=== PATIENT | female | born 1980 | race Caucasian/White ===

== ENCOUNTER 2018-05-27 14:32 | Emergency (ER) | payer OTHER ==
[2018-05-27] MEDS ORDERED: Metoprolol Tartrate 50 MG Tab PO ONE (15:22)
--- NOTE | 2018-05-27 15:32 | EDM.PDOC ---
<Deidra Castro - Last Filed: 05/27/18 15:24> ED HPI GENERAL MEDICAL PROBLEM - General Chief Complaint: Neurological Problem Stated Complaint: HIGH BP/ DIZZY Time Seen by Provider: 05/27/18 14:54 Source of Information: Reports: Patient, RN Notes Reviewed History Limitations: Reports: No Limitations - History of Present Illness INITIAL COMMENTS - FREE TEXT/NARRATIVE: Ling is a 38 year old female who presents to the ED today for irregular heart beat and an episode of dizziness, tingling, and hot flash. Patient states that about 1.5 hours ago she experienced the above symptoms, then sat down and took her blood pressure and it was "high" so she reported to the ED. She has a history of PVC's and has been seen and evaluated for this problem in the past. She does have a standing order for a Holter monitor, which she has yet to complete. Her PCP is Dr. Love. She states that a very similar situation occurred one month ago, and was seen at [facility] in [place], where she was medically cleared. She feels that her PVC's are brought on by fatigue, dehydration, stress and caffeine use. She also associates them with her use of phentermine, which she has discontinued for the last month. She also takes vitamins and a baby aspirin when she remembers. Her paternal grandfather had an TX at age 52 and her father has a history of PVC starting around age 30-40. She currently feels an uncomfortable feeling in her chest, like a pause. She states that it makes her want to cough. She denies any chest pain or shortness of breath. She has been drinking more water lately and states she has had 70+ ounces today, and therefore has increased urination. Treatments CRYSTAL REPORT DEVELOPER: Reports: Other (see below) Other Treatments CRYSTAL REPORT DEVELOPER: none - Related Data Allergies Allergy/AdvReac Type Severity Reaction Status Date / Time No Known Allergies Allergy Verified 08/23/16 12:43 CDT Home Meds: Home Meds L.acidoph,Paracasei, B.lactis [Probiotic] 1 cap PO DAILY 05/27/18 [History] Multivitamin [Multivitamins] 1 cap PO DAILY 05/27/18 [History] [place]-3 Fatty Acids [[place]-3] 100 mg PO DAILY 05/27/18 [History] Past Medical History - Past Surgical History HEENT Surgical History: Reports: Adenoidectomy, Tonsillectomy GI Surgical History: Reports: Cholecystectomy Social & Family History - Family History Family Medical History: Noncontributory - Tobacco Use Smoking Status *Q: Current Every Day Smoker Years of Tobacco use: 10 Packs/Tins Daily: 0.1 - Caffeine Use Caffeine Use: Reports: Coffee - Recreational Drug Use Recreational Drug Use: No ED ROS GENERAL - Review of Systems Review Of Systems: See Below Constitutional: Reports: No Symptoms HEENT: Reports: No Symptoms Respiratory: Reports: No Symptoms Cardiovascular: Reports: Blood Pressure Problem (high blood pressure after episode of dizziness and flushing), Lightheadedness, Palpitations GI/Abdominal: Reports: No Symptoms : Reports: No Symptoms Musculoskeletal: Reports: No Symptoms Skin: Reports: No Symptoms Neurological: Reports: Dizziness, Tingling (entire body, especially arms ) Psychiatric: Reports: Anxiety ED EXAM, GENERAL - Physical Exam Exam: See Below Exam Limited By: No Limitations General Appearance: Alert, WD/WN, No Apparent Distress Eye Exam: Bilateral Eye: EOMI, Normal Inspection Respiratory/Chest: No Respiratory Distress, Lungs Clear, Normal Breath Sounds, Chest Non-Tender Cardiovascular: No Edema (patient does wear compression stockings), Irregularly Irregular Peripheral Pulses: 4+: Radial (L) (irregular), Radial (R) (irregular ) GI/Abdominal: Soft, Non-Tender, No Mass Extremities: No Pedal Edema, Normal Capillary Refill Neurological: Alert, Oriented, CN II-XII Intact, Normal Cognition Skin Exam: Warm, Dry, Intact Course - Vital Signs Last Recorded V/S: Last Vital Signs Temp 98.5 F 05/27/18 14:51 Pulse 78 05/27/18 15:41 Resp 21 H 05/27/18 14:51 BP 144/84 H 05/27/18 15:41 Pulse Ox 100 05/27/18 14:51 - Orders/Labs/Meds Orders: Active Orders 24 hr Category Date Time Status EKG Documentation Completion [RC] ASDIRECTED Care 05/27/18 14:57 Active Holter Monitor 48 Hours [RC] .PRN Care 05/27/18 16:15 Active EKG 12 Lead [EK] Stat Ther 05/27/18 14:57 Ordered Labs: Laboratory Tests 05/27/18 05/27/18 Range/Units 15:00 15:00 WBC 6.58 (3.98-10.04) K/mm3 RBC 4.26 (3.98-5.22) M/mm3 Hgb 12.9 (11.2-15.7) gm/L Hct 39.1 (34.1-44.9) % MCV 91.8 (79.4-94.8) fl MCH 30.3 (25.6-32.2) pg MCHC 33.0 (32.2-35.5) g/dl RDW Std Deviation 40.9 (36.4-46.3) fL Plt Count 261 (182-369) K/mm3 MPV 10.0 (9.4-12.3) fl Neut % (Auto) 57.9 (34.0-71.1) % Lymph % (Auto) 32.5 (19.3-51.7) % [place] % (Auto) 7.3 (4.7-12.5) % Eos % (Auto) 1.8 (0.7-5.8) Baso % (Auto) 0.3 (0.1-1.2) % Neut # (Auto) 3.81 (1.56-6.13) K/mm3 Lymph # (Auto) 2.14 (1.18-3.74) K/mm3 [place] # (Auto) 0.48 H (0.24-0.36) K/mm3 Eos # (Auto) 0.12 (0.04-0.36) K/mm3 Baso # (Auto) 0.02 (0.01-0.08) K/mm3 Sodium 141 (136-145) mEq/L Potassium 3.6 (3.5-5.1) mEq/L Chloride 103 (98-107) mEq/L Carbon Dioxide 27 (21-32) mEq/L Anion Gap 14.6 (5-15) BUN 10 (7-18) mg/dL Creatinine 0.8 (0.55-1.02) mg/dL Est Cr Clr Drug Dosing 75.41 mL/min Estimated GFR (MDRD) > 60 (>60) mL/min BUN/Creatinine Ratio 12.5 L (14-18) Glucose 99 (74-106) mg/dL Calcium 9.8 (8.5-10.1) mg/dL Total Bilirubin 0.4 (0.2-1.0) mg/dL AST 23 (15-37) U/L ALT 40 (14-59) U/L Alkaline Phosphatase 52 (46-116) U/L Total Protein 7.9 (6.4-8.2) g/dl Albumin 4.3 (3.4-5.0) g/dl Globulin 3.6 gm/dL Albumin/Globulin Ratio 1.2 (1-2) Meds: Medications Discontinued Medications Generic Name Dose Route Start Last Admin Trade Name M[place]q PRN Reason Stop Dose Admin Metoprolol Tartrate 50 mg 05/27/18 15:22 05/27/18 15:41 Lopressor PO 05/27/18 15:23 25 mg ONETIME ONE Administration Departure - Departure Disposition: Home, Self-Care 01 Clinical Impression: Heart palpitations, Frequent PVCs Referrals: Yanely Love LPN [Primary Care Provider] - Forms: ED Department Discharge Additional Instructions: 48 hour holter moniter, cardiac echocardiogram, if not given a time now at time of discharge the Radiology dept will call you to set up a time for that. Caffeine is one of the know triggers for PVC's so try reduce caffeine intake for now. Follow up with Dr Love for holter moniter and echocardiagram results , further evaluation and treatment as needed. Return to ED as needed. - My Orders Last 24 Hours: My Active Orders 05/27/18 14:57 EKG Documentation Completion [RC] ASDIRECTED EKG 12 Lead [EK] Stat 05/27/18 16:15 Holter Monitor 48 Hours [RC] .PRN - Assessment/Plan Last 24 Hours: My Active Orders 05/27/18 14:57 EKG Documentation Completion [RC] ASDIRECTED EKG 12 Lead [EK] Stat 05/27/18 16:15 Holter Monitor 48 Hours [RC] .PRN <Marquez Livingston - Last Filed: 05/27/18 16:21> Departure - Departure Time of Disposition: 16:18 Condition: Good
[2018-05-27 16:42] VITALS: BP 125/81
== END 2018-05-27 16:40 | disposition home or self-care (01) ==
LOC: JD.ED 14:32
DX: R00.2 Palpitations (principal); I49.3 Ventricular premature depolarization; F17.210 Nicotine dependence, cigarettes, uncomplicated; Z79.899 Other long term (current) drug therapy
CPT/HCPCS: 36415; 80053; 85025; 93005; 93225; 93226; 99285; A9270; 93010; 99283

== ENCOUNTER 2020-05-01 16:11 | Emergency (ER) | payer OTHER ==
--- NOTE | 2020-05-01 17:15 | EDM.PDOC ---
ED HPI GENERAL MEDICAL PROBLEM - General Chief Complaint: Cardiovascular Problem Stated Complaint: DIZZY/RAPID HEART BEAT Time Seen by Provider: 05/01/20 16:47 Source of Information: Reports: Patient, RN Notes Reviewed History Limitations: Reports: No Limitations - History of Present Illness INITIAL COMMENTS - FREE TEXT/NARRATIVE: Patient is a 40-year-old female presenting to the emergency department with complaints of an episode of rapid heart rate and dizziness. She states she was driving to [place] when the symptoms occurred. She stopped in [place] which is on her way. She states that her heart rate was approximately 130 and she became dizzy and felt some tightness in her chest. Denies any significant chest pain associated with this. Symptoms lasted a few minutes and then resolved. At this time she is feeling well. Patient states she does have a history of episodes similar to this. She was recently taken off of beta-maged by her workers compensation specialist because she states it was "making her feel crummy ". She has had numerous tests such as Holter monitor, stress test, echocardiogram completed. She has been told that she has vasospasms which cause her chest pain. She denies any thyroid abnormalities. She states she has an appointment with her primary care provider in May and plans to request a referral to another workers compensation specialist for second opinion. States that she wanted to be evaluated to make sure she was not having a heart attack. She denies any chest pain or shortness of breath at this time. Onset of symptoms was approximately an hour and a half ago. - Related Data Allergies Allergy/AdvReac Type Severity Reaction Status Date / Time sulfamethoxazole Allergy Rash Verified 05/01/20 16:39 [From Bactrim] trimethoprim [From Bactrim] Allergy Rash Verified 05/01/20 16:39 Home Meds: Home Meds L.acidoph,Paracasei, B.lactis [Probiotic] 1 cap PO DAILY 05/27/18 [History] Multivitamin [Multivitamins] 1 cap PO DAILY 05/27/18 [History] [place]-3 Fatty Acids [[place]-3] 100 mg PO DAILY 05/27/18 [History] LORazepam [Ativan] 0.5 mg PO ASDIRECTED PRN 03/28/20 [History] Rosuvastatin [Crestor] 5 mg PO DAILY 03/28/20 [History] traZODone HCl [Trazodone HCl] 50 mg PO ASDIRECTED PRN 03/28/20 [History] Albuterol Sulfate [Proair Hfa] 8.5 gm IH Q8HR PRN #1 [id number] 04/25/20 [Rx] Amoxicillin 1,000 mg PO TID 7 Days #42 tablet 04/25/20 [Rx] Past Medical History Cardiovascular History: Reports: Other (See Below) Other Cardiovascular History: palpitations Psychiatric History: Reports: Anxiety - Infectious Disease History Infectious Disease History: Reports: Chicken Pox - Past Surgical History HEENT Surgical History: Reports: Adenoidectomy, Tonsillectomy GI Surgical History: Reports: Cholecystectomy Musculoskeletal Surgical History: Reports: Other (See Below) Other Musculoskeletal Surgeries/Procedures:: vein stripping surgery Social & Family History - Family History Family Medical History: No Pertinent Family History - Tobacco Use Tobacco Use Status *Q: Current Some Day Tobacco User Years of Tobacco use: 20 Packs/Tins Daily: 0.1 - Caffeine Use Caffeine Use: Reports: Coffee - Recreational Drug Use Recreational Drug Use: No ED ROS GENERAL - Review of Systems Review Of Systems: See Below Constitutional: Reports: No Symptoms HEENT: Reports: No Symptoms Respiratory: Reports: No Symptoms. Denies: Shortness of Breath, Cough Cardiovascular: Reports: Lightheadedness, Palpitations. Denies: Chest Pain, Syncope Endocrine: Reports: No Symptoms GI/Abdominal: Reports: No Symptoms : Reports: No Symptoms Musculoskeletal: Reports: No Symptoms Skin: Reports: No Symptoms Neurological: Reports: No Symptoms Psychiatric: Reports: No Symptoms Hematologic/Lymphatic: Reports: No Symptoms Immunologic: Reports: No Symptoms ED EXAM, GENERAL - Physical Exam Exam: See Below General Appearance: Alert, WD/WN, No Apparent Distress Respiratory/Chest: No Respiratory Distress, Lungs Clear, Normal Breath Sounds, No Accessory Muscle Use, Chest Non-Tender Cardiovascular: Normal Peripheral Pulses, Regular Rate, Rhythm, No Edema, No Gallop, No JVD, No Murmur, No Rub GI/Abdominal: Normal Bowel Sounds, Soft, Non-Tender, No Organomegaly, No Distention, No Abnormal Bruit, No Mass Neurological: Alert, Oriented, CN II-XII Intact, Normal Cognition, Normal Gait, Normal Reflexes, No Motor/Sensory Deficits Psychiatric: Normal Affect, Normal Mood Skin Exam: Warm, Dry, Intact, Normal Color, No Rash #1 Interpretation EKG Date: 05/01/20 Time: 17:19 Rhythm: NSR Rate (Beats/Min): 78 [place]: Normal P-Wave: Present QRS: Normal ST-T: Normal QT: Normal Course - Vital Signs Last Recorded V/S: Last Vital Signs Temp 98.4 F 05/01/20 18:28 Pulse 80 05/01/20 18:28 Resp 22 H 05/01/20 18:28 BP 130/85 05/01/20 18:28 Pulse Ox 99 05/01/20 18:28 - Orders/Labs/Meds Orders: Active Orders 24 hr Category Date Time Status Chest 2V [CR] Stat Exams 05/01/20 16:47 Taken Labs: Laboratory Tests 05/01/20 05/01/20 Range/Units 17:05 17:05 WBC 7.85 (3.98-10.04) K/mm3 RBC 4.19 (3.98-5.22) M/mm3 Hgb 12.7 (11.2-15.7) gm/dl Hct 39.6 (34.1-44.9) % MCV 94.5 (79.4-94.8) fl MCH 30.3 (25.6-32.2) pg MCHC 32.1 L (32.2-35.5) g/dl RDW Std Deviation 43.0 (36.4-46.3) fL Plt Count 287 (182-369) K/mm3 MPV 9.8 (9.4-12.3) fl Neut % (Auto) 66.7 (34.0-71.1) % Lymph % (Auto) 25.1 (19.3-51.7) % [place] % (Auto) 6.2 (4.7-12.5) % Eos % (Auto) 1.3 (0.7-5.8) Baso % (Auto) 0.4 (0.1-1.2) % Neut # (Auto) 5.24 (1.56-6.13) K/mm3 Lymph # (Auto) 1.97 (1.18-3.74) K/mm3 [place] # (Auto) 0.49 H (0.24-0.36) K/mm3 Eos # (Auto) 0.10 (0.04-0.36) K/mm3 Baso # (Auto) 0.03 (0.01-0.08) K/mm3 Sodium 142 (136-145) mEq/L Potassium 3.6 (3.5-5.1) mEq/L Chloride 105 (98-107) mEq/L Carbon Dioxide 26 (21-32) mEq/L Anion Gap 14.6 (5-15) BUN 13 (7-18) mg/dL Creatinine 1.1 H (0.55-1.02) mg/dL Est Cr Clr Drug Dosing 53.77 mL/min Estimated GFR (MDRD) 55 (>60) mL/min BUN/Creatinine Ratio 11.8 L (14-18) Glucose 98 (74-106) mg/dL Calcium 8.6 (8.5-10.1) mg/dL Total Bilirubin 0.3 (0.2-1.0) mg/dL AST 15 (15-37) U/L ALT 27 (14-59) U/L Alkaline Phosphatase 48 (46-116) U/L Troponin I < 0.017 (0.00-0.056) ng/mL C-Reactive Protein 0.9 (<1.0) mg/dL Total Protein 7.4 (6.4-8.2) g/dl Albumin 3.8 (3.4-5.0) g/dl Globulin 3.6 gm/dL Albumin/Globulin Ratio 1.1 (1-2) Free T4 1.02 (0.76-1.46) ng/dL TSH 3rd Generation 0.567 (0.358-3.74) uIU/mL - Re-Assessments/Exams Free Text/Narrative Re-Assessment/Exam: Patient is a 40-year-old female presenting to the emergency department with complaints of an episode of rapid heart rate and dizziness. Symptoms lasted for a few minutes and then subsided. She states that she maintained a heart rate in the low 100s for short period of time thereafter, but the dizziness resolved. Vital signs on triage were stable. She has had numerous test completed in the past with no definitive answers. She states she was told that she probably has vasospasms. I have ordered CBC, CMP, CRP, troponin, TSH, free T4, EKG, chest x-ray. 05/01/20 19:18 Patient's work-up was grossly unremarkable. Troponin was negative at less than 0.017. Thyroid is normal. EKG showed normal sinus rhythm with no acute abnormalities. She is had no further episodes of palpitations or dizziness. We will discharge her home with a recommendation to follow-up with her primary care provider and workers compensation specialist. Discussed return precautions. Discharge instructions as documented. Departure - Departure Time of Disposition: 19:18 Disposition: Home, Self-Care 01 Condition: Good Clinical Impression: Heart palpitations Instructions: Palpitations, [id number] Referrals: Trish Love MD [Primary Care Provider] - Forms: ED Department Discharge Additional Instructions: You were seen in the emergency department after having an episode of rapid heartbeat with dizziness which self resolved. Work-up included blood work, an EKG, chest x-ray. Results your work-up was found to be normal. Your troponin was negative. EKG showed normal sinus rhythm with no abnormalities. Recommend that you follow-up with your primary care provider and workers compensation specialist at the next available visit. If you should experience any new or worsening symptoms of concern, seek treatment at your nearest medical care facility. Sepsis Event Note (ED) - Evaluation Sepsis Screening Result: No Definite Risk - Focused Exam Vital Signs: Vital Signs Temp Pulse Resp BP Pulse Ox 05/01/20 18:28 98.4 F 80 22 H 130/85 99 05/01/20 16:35 98.1 F 87 16 104/94 H 99 - My Orders Last 24 Hours: My Active Orders 05/01/20 16:47 Chest 2V [CR] Stat - Assessment/Plan Last 24 Hours: My Active Orders 05/01/20 16:47 Chest 2V [CR] Stat
[2020-05-01 18:29] VITALS: BP 130/85; PULSE 80
--- NOTE | 2020-05-02 12:27 | CR ---
Chest: 2 views of the chest were obtained. Comparison: No prior chest imaging is available. Heart size and mediastinum are normal. Lungs are clear with no acute parenchymal change. Prior surgery is seen for prior cholecystectomy. No acute bony abnormality is appreciated. Impression: 1. Previous cholecystectomy. 2. Nothing acute is appreciated. Diagnostic code #2
== END 2020-05-01 19:25 | disposition home or self-care (01) ==
LOC: JD.ED 16:11
DX: R00.2 Palpitations (principal); F41.9 Anxiety disorder, unspecified; F17.210 Nicotine dependence, cigarettes, uncomplicated; Z88.2 Allergy status to sulfonamides; Z79.899 Other long term (current) drug therapy
CPT/HCPCS: 36415; 71046; 71046-26; 80053; 84439; 84443; 84484; 85025; 86140; 93005; 93010; 99284; 99285-25